=== PATIENT | male | born 1960 | race African-American/Black ===

== ENCOUNTER 2025-02-26 00:05 | Emergency (ER) | payer MEDICAID ==
[~2025-02-26] VITALS: Ht 177.8 cm; Wt 79.0 kg
[2025-02-26 00:17] VITALS: O2SAT 98
[2025-02-26] MEDS ORDERED: CYCL10TA21 MT (00:58)
[2025-02-26] MEDS: CYCLOBENZAPRINE 10MG TABLET PO ONE (01:07)
[2025-02-26 01:22] VITALS: BP 132/89; PULSE 99; RESP 14; TEMP 36.4; O2SAT 97
== END 2025-02-26 01:23 | disposition home or self-care (01) ==
LOC: ER 00:05
DX: S20.211A Contusion of right front wall of thorax, initial encounter (principal); J45.909 Unspecified asthma, uncomplicated; I25.2 Old myocardial infarction; W19.XXXA Unspecified fall, initial encounter; Y93.89 Activity, other specified; Y92.89 Other specified places as the place of occurrence of the external cause; Y99.8 Other external cause status
CPT/HCPCS: 93005; 99283